=== PATIENT | female | born 1950 | race Caucasian/White ===

== ENCOUNTER 2022-05-23 15:06 | Inpatient (IN) | payer BC ==
[~2022-05-23] VITALS: Ht 172.7 cm; Wt 76.2 kg
[2022-05-23 15:25] VITALS: BP_SYST 141
--- NOTE | 2022-05-23 15:30 | NUR ---
RECEIVED PT BIB FAMILY. PT HAS LEFT SIDED FACIAL DROOP WITH DROOLING NOTED. PT LETHARGIC, RIGHT PUPIL 2MM, LEFT PUPIL 4MM. PT FAMILY STATES PT HAS LEFT EYE PROTHEISIS. PT IS AAOX4, ABLE TO ANSWER QUESTIONS APPROPRIETLY WITH WET VOICE AND DISTORTION FOR FACIAL DROOPING, PT HAS LEFT SIDE WEAKNESS NOTICED TO LEFT LEG. RESP E/U. ON R/A. NO COUGH OR SOB. ABDOMEN SOFT, NONTENDER, NONDISTENDED. BOWEL SOUNDS ACTIVE. DISTAL PULSES NORMAL, NO EDEMA. IV CATH 20G PLACED TO LAC FIRST ATTEMPT, OPSITE APPLIED. PT DENIES PAIN.
--- NOTE | 2022-05-23 15:35 | NUR ---
DR. CALL AT BEDSIDE, CODE STROKE CALLED, BS 199. LABS OBTAINED. PT TAKEN FOR CT SCAN.
--- NOTE | 2022-05-23 15:52 | NUR ---
TELENEURO REQUESTED PER DR. CALL.
[2022-05-23 16:07] LABS: BASOPHILS # (AUTO) 0.1 K/uL (0.0-0.2); BASOPHILS % (AUTO) 0.5 % (0.0-2.0); EOSINOPHILS # (AUTO) 0.1 K/uL (0.0-0.4); EOSINOPHILS % (AUTO) 0.8 % (0.0-4.0); HEMATOCRIT 37.6 % (36-48); LYMPHOCYTES # (AUTO) 0.9 K/uL (1.0-5.5); LYMPHOCYTES % (AUTO) 5.7 % (20.5-51.5); MEAN CORPUSCULAR HEMOGLOBIN 32 pg (27-31); MEAN CORPUSCULAR HGB CONC 35 % (32-36); MEAN CORPUSCULAR VOLUME 92 fL (79.0-98.0); MONOCYTES # (AUTO) 1.1 K/uL (0.0-1.0); MONOCYTES % (AUTO) 6.8 % (1.7-9.3); NEUTROPHILS # (AUTO) 14.1 K/uL (1.8-7.7); NEUTROPHILS % (AUTO) 86.2 % (40.0-70.0); PLATELET COUNT (AUTO) 223 K/uL (130-430); RED BLOOD CELL COUNT(AUTO) 4.09 MIL/uL (4.2-6.2); RED CELL DISTRIBUTION WIDTH 13.4 % (9.0-15.0); WHITE BLOOD COUNT (AUTO) 16.4 K/uL (4.8-10.8)
--- NOTE | 2022-05-23 16:09 | NUR ---
COVID-19 SWAB OBTAINED, LABELED, AND SENT TO THE LAB.
--- NOTE | 2022-05-23 16:20 | NUR ---
TELE NEURO CONSULT INITIATED BY DR. JOHNSON AT THIS TIME.
[2022-05-23 16:36] LABS: ANION GAP 2 (5-15); CALCIUM 9.5 mg/dL (8.4-11.0); CHLORIDE 102 mmol/L (98-107); CREATININE 1.13 mg/dL (0.55-1.30); GLUCOSE 191 mg/dL (70-99); POTASSIUM 3.8 mmol/L (3.5-5.1); UREA NITROGEN, BLOOD 17 mg/dL (8-21)
[2022-05-23] MEDS ORDERED: ASPI-524 PO (16:41)
[2022-05-23] MEDS ORDERED: LITH300C2 PO (16:41)
[2022-05-23] MEDS ORDERED: NOR10 PO (16:41)
[2022-05-23] MEDS ORDERED: INSU100I26 SQ (16:41)
[2022-05-23] MEDS ORDERED: LIP10 PO (16:41)
[2022-05-23] MEDS ORDERED: RISP3TAB63 PO (16:41)
[2022-05-23] MEDS ORDERED: LEVO50CA4 PO (16:41)
[2022-05-23] MEDS ORDERED: GLIP10TA21 PO (16:41)
--- NOTE | 2022-05-23 16:41 | NUR ---
Medication reconciliation completed with information provided by PATIENT'S DAUGHTER. Any prior medication reconciliation on file was reviewed and corrected.
[2022-05-23 16:48] LABS: ALANINE AMINOTRANSFERASE 18 U/L (12-78); ALBUMIN 3.2 g/dL (3.4-4.8); ASPARTATE AMINOTRANSFERASE 23 U/L (10-37); TOTAL BILIRUBIN 0.9 mg/dL (0.0-1.0)
[2022-05-23 16:49] LABS: GFR AFRICAN AMERICAN 61 mL/min (>90)
--- NOTE | 2022-05-23 16:50 | NUR ---
DR. CALL AT BEDSIDE TO ASSESS PT.
[2022-05-23] MEDS ORDERED: iohexoL 350 mgI/mL, 100 ML INFUS..BTL IV ONE (16:51)
[2022-05-23 16:52] LABS: PROTHROMBIN TIME 10.6 SECS (9.5-12.5)
[2022-05-23 17:22] LABS: BILIRUBIN,URINE NEGATIVE (NEGATIVE); BLOOD, URINE 2+ (NEGATIVE); CLARITY/URINE SL CLOUDY (CLEAR); COLOR,URINE YELLOW (YELLOW); GLUCOSE,URINE NEGATIVE (NEGATIVE); KETONES,URINE NEGATIVE (NEGATIVE); LEUKOCYTE ESTERASE ,URINE 1+ (NEGATIVE); NITRITE, URINE POSITIVE (NEGATIVE); PH,URINE 6.5 (5.0-8.0); PROTEIN URINE 1+ (NEGATIVE); UROBILINOGEN,URINE 0.2 (0.2-1.0)
--- NOTE | 2022-05-23 17:24 | NUR ---
BELONGING COMPLETED BY JAQUI DANIEL
--- NOTE | 2022-05-23 17:26 | NUR ---
URINE OBTAINED BY STRAIGHT CATH, PT INCONTINENT. DIP STICK COMPLETED. DR. CALL MADE AWARE PT'S LEUKOCYTES AND NITRITES ARE POSITIVE, NNOS. URINE SAMPLE TAKEN TO LAB.
[2022-05-23 17:36] LABS: BACTERIA,URINE MANY /HPF (None Seen)
[2022-05-23 17:37] LABS: MUCUS,URINE None Seen /LPF (None Seen)
[2022-05-23] MEDS ORDERED: cefTRIAXone 1 GM in D5W 50 ML IV ONE (17:45)
--- NOTE | 2022-05-23 17:45 | NUR ---
SCHEDULED MEDS GIVEN AND TOLERATED WELL.
[2022-05-23] MEDS ORDERED: cefTRIAXone 1 GM VIAL ONE (18:19)
[2022-05-23] MEDS ORDERED: ACETAMINOPHEN 650 MG SUPP.RECT RC ONE (19:00)
[2022-05-23] MEDS: D5/0.45 NS 1,000 ML IV SCH (19:01)
--- NOTE | 2022-05-23 19:13 | NUR ---
ENDORSED ALL CARE TO STAN DORSEY. ALL QUESTIONS AND CONCERNS ADDRESSED.
--- NOTE | 2022-05-23 19:14 | NUR ---
PT'S TEMP 100.5F, TYLENOL 650MG RECTAL GIVEN. COOLING MEASURE IN PLACE.
--- NOTE | 2022-05-23 19:15 | NUR ---
PT IN BED RESTING. VSS. PT UNABLE TO COMMUNICATE EFFCTIVELY. PT A&O X1. UNABLE TO MANDREL CLEANER BILATERALLY. PT WITH NOTED LEFT FACIAL DROOP. DAUGHTER AT BEDSIDE.
--- NOTE | 2022-05-23 19:15 | NUR ---
Admit bed requested Patient will be admitted to care of . Admitted to telemetry unit. Diagnosis rule out cva Inpatient (Yes or No) y Observation (Yes or No) n Orientation concerns or request close to nursing station (Yes or No) n Covid Status neg On vent or bipap n Isolation requirements n Needs a sitter n From Home (Yes or if No enter name of facility) y Requires Dialysis (Yes or No) n Med Rec Completed (Yes of No) y
--- NOTE | 2022-05-23 19:41 | NUR ---
[facility] FLOOR CHARGE NURSE NOTIFIED OF BED REQUEST. AWAITING BED ASSIGNMENT
--- NOTE | 2022-05-23 20:08 | NUR ---
PT WILL BE ADMITTING TO [address] , ENTERED ROOM NO. IN THE TRACKER
--- NOTE | 2022-05-23 20:15 | NUR ---
Patient will be admitted to care of Dr. Obando. Admitted to telemetry unit. Will go to room 119B. Belongings list completed. Complete and up to date summary report printed. SBAR report given to Aylin PIERCE at bedside with opportunity for questions.
[2022-05-23 20:57] VITALS: BP_SYST 118
--- NOTE | 2022-05-23 22:30 | NUR ---
NEW IV SITE PREVIOUS IV AT LEFT AC REMOVED, CATHETER FULLY INTACT, NO ACTIVE BLEEDING NOTED. REMOVED DUE TO INFILTRATION. NEW IV INSERTED AT LEFT FOREARM , 22 GAUGE, PATIENT TOLERATED WELL. IVF INFUSING WELL. WILL CONTINUE TO MONITOR.
[2022-05-24] VITALS: BP_SYST 122
--- NOTE | 2022-05-24 02:30 | NUR ---
LEFT VOICEMAIL FOR SWALLOW EVAL
--- NOTE | 2022-05-24 03:07 | NUR ---
ROUNDS PATIENT IN BED, RESTING. NO SIGNS OF DISCOMFORT. ALL NEEDS MET. WILL CONTINUE TO MONITOR.
--- NOTE | 2022-05-24 06:28 | NUR ---
CLOSING NOTE PATIENT IN BED, RESTING, NO S/S OF ACUTE DISTRESS NOTED. BREATHING EVEN AND UNLABORED. HOB RAISED. IVF INFUSING WELL, IV SITE PATENT, NO SIGNS OF INFILTRATION OR INFECTION NOTED. SKIN WARM AND DRY TO TOUCH. ALL NEEDS MET THROUGHOUT SHIFT. FALL, SAFETY PRECAUTIONS MAINTAINED THROUGHOUT SHIFT. WILL CONTINUE TO MONITOR UNTIL PATIENT CARE IS ENDORSED TO ONCOMING DAYSHIFT NURSE.
--- NOTE | 2022-05-24 07:05 | NUR ---
OPENING RECEIVE SBAR FROM NIGHT NURSE, PATIENT IS LAYING IN BED WITH EYES CLOSE, RESPIRATIONS ARE EVEN AN NON LABORED, BED IN LOW LOCKED POSITION, BED ALARM ON, CALL LIGHT WITHIN REACH.
[2022-05-24 08:00] VITALS: BP_SYST 149
--- NOTE | 2022-05-24 08:00 | NUR ---
PT VERY DROWSY, AWAKENS TO VOICE AND TOUCH BUT GOES BACK TO SLEEP.
[2022-05-24] MEDS: cefTRIAXone 1 GM in D5W 50 ML IV SCH (08:24)
--- NOTE | 2022-05-24 08:45 | NUR ---
Annel OWENS. SEE PT WALKING WITH PT IN THE HALLWAY WITH F[facility].
--- NOTE | 2022-05-24 10:06 | NUR ---
MRI PATIENT TAKEN FOR MRI VIA [facility]
[2022-05-24 12:31] VITALS: BP_SYST 157
--- NOTE | 2022-05-24 14:16 | NUR ---
Bear Lao followed up with speech therapist. spoke to Joaquin
[2022-05-24] MEDS: D5/0.45 NS 1,000 ML IV SCH ×2 (14:45→21:10)
--- NOTE | 2022-05-24 14:54 | NUR ---
PAGED DR. BROWN, PT WITH ELEVATED TEMP
[2022-05-24 16:20] VITALS: BP_SYST 142
--- NOTE | 2022-05-24 16:20 | NUR ---
speech therapist at bedside
--- NOTE | 2022-05-24 16:37 | NUR ---
ST EVALUATION COMPLETED. ST TX NOT INDICATED AT THIS TIME. RECOMMEND PO DIET OF PUREE/THIN LIQUID WITH 1:1 ASSISTANCE AND FULL ASPIRATION PRECAUTIONS.
--- NOTE | 2022-05-24 16:50 | NUR ---
MD Dr. Obando at bedside talking to family
--- NOTE | 2022-05-24 16:55 | NUR ---
MD Dr. Obando on the floor, new orders receive
[2022-05-24] MEDS: ACETAMINOPHEN 325 MG TABLET PO PRN (19:11)
--- NOTE | 2022-05-24 19:15 | NUR ---
I received pt in bed with family by the bedside .pt able to follow simple commands.NIH assessment done .pt has a Temp 99.9 cooling ice provided .AccuStick @2100 is 379 . Lantus 45 units SQ given to right lower abdomen as ordered
--- NOTE | 2022-05-24 19:22 | NUR ---
closing provided sbar to night nurse, patient in bed, iv running as ordered, respiration even and non labored, temp was 100.5, medication given as ordered and cooling measures provided, bed are low and in gilbert position , bed alarm on, family at bedside, endorsed care to night nurse
[2022-05-24 20:00] VITALS: BP_SYST 144
[2022-05-24] MEDS: glipiZIDE XL 5 MG TAB ( GLUCOTROL XL) PO SCH (20:57)
[2022-05-24] MEDS: INSULIN GLARGINE 100 UNITS/ML, 10 ML VIAL SUBCUT SCH (21:12)
[2022-05-24] MEDS: risperiDONE 1 MG TABLET (RisperDAL) PO SCH (21:14)
[2022-05-24] MEDS: ATORVASTATIN 10 MG TABLET PO SCH (21:15)
[2022-05-24] MEDS: LITHIUM CARBONATE 300 MG TABLET.SA PO SCH (21:15)
--- NOTE | 2022-05-24 22:00 | NUR ---
provided a bed rivera and a CHG bath with complete linen Change
[2022-05-24 23:21] VITALS: BP_SYST 153
[2022-05-25] VITALS: BP_SYST 153
--- NOTE | 2022-05-25 01:00 | NUR ---
pt had a BM in bed .cleaned and linen changed
[2022-05-25] MEDS: LEVOTHYROXINE SODIUM 0.05 MG TABLET PO SCH (06:39)
[2022-05-25 07:54] VITALS: BP_SYST 144
[2022-05-25] MEDS: ASPIRIN 81 MG TAB.CHEW PO SCH (08:26)
[2022-05-25] MEDS: glipiZIDE XL 5 MG TAB ( GLUCOTROL XL) PO SCH ×2 (08:26→20:30)
[2022-05-25] MEDS: amLODIPine BESYLATE 10 MG TABLET PO SCH (08:27)
[2022-05-25] MEDS: LITHIUM CARBONATE 300 MG TABLET.SA PO SCH ×2 (08:28→20:30)
[2022-05-25] MEDS: cefTRIAXone 1 GM in D5W 50 ML IV SCH (08:43)
--- NOTE | 2022-05-25 08:44 | NUR ---
HHN FOR P.T. AT HOME FAMILY REQUESTING FOR HHN FOR P.T. AT HOME.
--- NOTE | 2022-05-25 09:01 | NUR ---
FAMILY AT BEDSIDE. THIS RN ASSISTED PT WITH BREAKFAST AND MEDICATIONS. MED WERE CRUSHED AND GIVEN WITH PUREED PEACH. PT TOLERATED WELL. PT'S GAVE PT ENSURE, PT STARTED COUGHING. TOLD THEM TO SLOW DOWN WHEN THEY FEED THE PT OR GIVE DRINK TO PT.
[2022-05-25 09:03] LABS: BASOPHILS # (AUTO) 0.1 K/uL (0.0-0.2); BASOPHILS % (AUTO) 0.6 % (0.0-2.0); EOSINOPHILS # (AUTO) 0.1 K/uL (0.0-0.4); HEMATOCRIT 38.1 % (36-48); HEMOGLOBIN 13.1 g/dL (12.0-16.0); LYMPHOCYTES # (AUTO) 0.4 K/uL (1.0-5.5); LYMPHOCYTES % (AUTO) 4.4 % (20.5-51.5); MEAN CORPUSCULAR HEMOGLOBIN 31 pg (27-31); MEAN CORPUSCULAR HGB CONC 34 % (32-36); MEAN CORPUSCULAR VOLUME 91 fL (79.0-98.0); MONOCYTES # (AUTO) 0.8 K/uL (0.0-1.0); MONOCYTES % (AUTO) 9.1 % (1.7-9.3); NEUTROPHILS # (AUTO) 7.1 K/uL (1.8-7.7); NEUTROPHILS % (AUTO) 84.9 % (40.0-70.0); PLATELET COUNT (AUTO) 216 K/uL (130-430); RED BLOOD CELL COUNT(AUTO) 4.17 MIL/uL (4.2-6.2); RED CELL DISTRIBUTION WIDTH 13.4 % (9.0-15.0); WHITE BLOOD COUNT (AUTO) 8.4 K/uL (4.8-10.8)
[2022-05-25] MEDS: D5/0.45 NS 1,000 ML IV SCH ×2 (10:30→23:01)
[2022-05-25 10:44] LABS: ALBUMIN 2.8 g/dL (3.4-4.8); CALCIUM 9.1 mg/dL (8.4-11.0); CREATININE 1.08 mg/dL (0.55-1.30); POTASSIUM 3.9 mmol/L (3.5-5.1); TOTAL BILIRUBIN 0.4 mg/dL (0.0-1.0)
[2022-05-25 11:55] VITALS: BP_SYST 149
--- NOTE | 2022-05-25 14:10 | NUR ---
[facility]/HCP CM MS Thompson OUTMARCUS WAS CALLED, RE: TO ARRANGE DELIVERY OF FWW FOR HOME USE.
[2022-05-25 15:05] VITALS: BP_SYST 113; BP_SYST 147
[2022-05-25] MEDS: ACETAMINOPHEN 325 MG TABLET PO PRN (15:20)
--- NOTE | 2022-05-25 15:43 | NUR ---
PT HAD TEMP OF 100.6, GIVEN TYLENOL , DR BROWN AWARE, NEW ORDERS GIVEN.
--- NOTE | 2022-05-25 18:40 | NUR ---
DC HOME ORDER ON HOLD DT PT HAD TEMP OF 100.6 , PT WAS GIVEN TYLENOL AND TEMP IS BETTER NOW. PT HAS BEEN HAVING A LOT OF URINE INCONTINENCE , CHANGED SEVERAL TIME DURING THE SHIFT. PT'S FAMILY WERE AT BEDSIDE IS AWARE OF WHAT IS GOING ON THIS RN AND DR BROWN UPDATED THEM.
[2022-05-25] MEDS: INSULIN GLARGINE 100 UNITS/ML, 10 ML VIAL SUBCUT SCH (20:28)
[2022-05-25] MEDS: ATORVASTATIN 10 MG TABLET PO SCH (20:30)
[2022-05-25] MEDS: risperiDONE 1 MG TABLET (RisperDAL) PO SCH (20:30)
[2022-05-25] MEDS: INSULIN LISPRO SLIDING SCALE 100 UNITS/ML, 3 ML VIAL (humaLOG) SUBCUT PRN (21:03)
[2022-05-25 22:04] VITALS: BP_SYST 151
[2022-05-26] VITALS: BP_SYST 135
[2022-05-26] MEDS: LEVOTHYROXINE SODIUM 0.05 MG TABLET PO SCH (06:09)
--- NOTE | 2022-05-26 06:12 | NUR ---
rn notes patient remains on room air, no sob noted. last BS was 102. Possible DC today per Dr Obando, once he sees her and add a medication to better control pts diabetes.
--- NOTE | 2022-05-26 06:49 | NUR ---
INFORMED REGISTRY NURSE NINOSKA THAT THE PATIENT IS OFF THE TELE MONITOR
[2022-05-26 08:03] VITALS: BP_SYST 159
--- NOTE | 2022-05-26 08:30 | NUR ---
PT VERY SOAKED WITH URINE, COMPLETE BED CHANGED DONE.
[2022-05-26] MEDS: ASPIRIN 81 MG TAB.CHEW PO SCH (08:40)
[2022-05-26] MEDS: glipiZIDE XL 5 MG TAB ( GLUCOTROL XL) PO SCH ×2 (08:40→20:56)
[2022-05-26] MEDS: amLODIPine BESYLATE 10 MG TABLET PO SCH (08:43)
[2022-05-26] MEDS: LITHIUM CARBONATE 300 MG TABLET.SA PO SCH ×2 (08:43→20:56)
[2022-05-26] MEDS: cefTRIAXone 1 GM in D5W 50 ML IV SCH (08:50)
[2022-05-26] MEDS: INSULIN LISPRO SLIDING SCALE 100 UNITS/ML, 3 ML VIAL (humaLOG) SUBCUT PRN (11:52)
[2022-05-26 13:00] VITALS: BP_SYST 145
[2022-05-26] MEDS: D5/0.45 NS 1,000 ML IV SCH (13:10)
[2022-05-26 18:33] VITALS: BP_SYST 123
[2022-05-26] MEDS: INSULIN GLARGINE 100 UNITS/ML, 10 ML VIAL SUBCUT SCH (20:56)
[2022-05-26] MEDS: ATORVASTATIN 10 MG TABLET PO SCH (20:56)
[2022-05-26] MEDS: risperiDONE 1 MG TABLET (RisperDAL) PO SCH (20:56)
[2022-05-26 21:37] VITALS: BP_SYST 143
[2022-05-27 01:10] VITALS: BP_SYST 163
[2022-05-27] MEDS: D5/0.45 NS 1,000 ML IV SCH ×2 (02:38→15:33)
--- NOTE | 2022-05-27 06:26 | NUR ---
rn notes patient remainsonroom air, no sob noted. VSS. Blood sugar is normal all shift. Some moments of confusion. Still incontinent x 2.
[2022-05-27] MEDS: LEVOTHYROXINE SODIUM 0.05 MG TABLET PO SCH (06:30)
--- NOTE | 2022-05-27 07:21 | NUR ---
receive the patient form the security shift manager rn in a stable condition with admitting diagnosis of rule out stroke . aox2 bedrest . no sign and symptoms of pain . no complain of respiratory distress at this time . will continue to monitor
[2022-05-27 07:31] LABS: C-REACTIVE PROTEIN QUANT 3.4 mg/dL (0-0.5); CALCIUM 9.4 mg/dL (8.4-11.0); CREATININE 0.99 mg/dL (0.55-1.30); PHOSPHORUS 5.1 mg/dL (2.7-4.5); POTASSIUM 3.6 mmol/L (3.5-5.1)
[2022-05-27 08:44] LABS: BASOPHILS # (AUTO) 0.1 K/uL (0.0-0.2); BASOPHILS % (AUTO) 0.8 % (0.0-2.0); EOSINOPHILS # (AUTO) 0.4 K/uL (0.0-0.4); EOSINOPHILS % (AUTO) 4.5 % (0.0-4.0); HEMATOCRIT 38.6 % (36-48); HEMOGLOBIN 13.2 g/dL (12.0-16.0); LYMPHOCYTES % (AUTO) 13.3 % (20.5-51.5); MEAN CORPUSCULAR HEMOGLOBIN 31 pg (27-31); MEAN CORPUSCULAR HGB CONC 34 % (32-36); MEAN CORPUSCULAR VOLUME 91 fL (79.0-98.0); MONOCYTES # (AUTO) 0.6 K/uL (0.0-1.0); MONOCYTES % (AUTO) 7.8 % (1.7-9.3); NEUTROPHILS # (AUTO) 5.7 K/uL (1.8-7.7); NEUTROPHILS % (AUTO) 73.6 % (40.0-70.0); PLATELET COUNT (AUTO) 240 K/uL (130-430); RED BLOOD CELL COUNT(AUTO) 4.22 MIL/uL (4.2-6.2); RED CELL DISTRIBUTION WIDTH 13.7 % (9.0-15.0); WHITE BLOOD COUNT (AUTO) 7.8 K/uL (4.8-10.8)
[2022-05-27 09:26] LABS: ERYTHROCYTE SEDIMENTATION RATE 31 MM/HR (0-20)
[2022-05-27] MEDS: cefTRIAXone 1 GM in D5W 50 ML IV SCH (10:44)
[2022-05-27] MEDS: ASPIRIN 81 MG TAB.CHEW PO SCH (10:45)
[2022-05-27] MEDS: amLODIPine BESYLATE 10 MG TABLET PO SCH (10:46)
[2022-05-27] MEDS: LITHIUM CARBONATE 300 MG TABLET.SA PO SCH ×2 (10:46→21:14)
[2022-05-27] MEDS: glipiZIDE XL 5 MG TAB ( GLUCOTROL XL) PO SCH ×2 (10:48→21:14)
[2022-05-27] MEDS: INSULIN LISPRO SLIDING SCALE 100 UNITS/ML, 3 ML VIAL (humaLOG) SUBCUT PRN ×2 (11:36→18:17)
[2022-05-27 11:49] VITALS: BP_SYST 141
[2022-05-27] MEDS ORDERED: NITR-85 PO (13:05)
[2022-05-27 16:46] VITALS: BP_SYST 136
--- NOTE | 2022-05-27 18:50 | NUR ---
will endorse to shift superintendent caustic cresylate rn for continuity of care
--- NOTE | 2022-05-27 19:23 | NUR ---
OPENING NOTES: Patient received from AM shift. Patient is currently sleeping with family at bedside and no s/s of distress noted at this time. Chest rise is even and unlabored on RA. Patient is noted to be stable at this time, safety measures are in place and patient has call light within reach. Will resume care and continue to monitor throughout the shift.
[2022-05-27 20:00] VITALS: BP_SYST 157
[2022-05-27] MEDS: ATORVASTATIN 10 MG TABLET PO SCH (21:14)
[2022-05-27] MEDS: risperiDONE 1 MG TABLET (RisperDAL) PO SCH (21:15)
[2022-05-27] MEDS: INSULIN GLARGINE 100 UNITS/ML, 10 ML VIAL SUBCUT SCH (21:23)
[2022-05-28 00:37] VITALS: BP_SYST 145
--- NOTE | 2022-05-28 00:44 | NUR ---
PATIENT RESTING: Patient resting quietly. No acute distress noted. Vital signs within normal range.
[2022-05-28] MEDS: LEVOTHYROXINE SODIUM 0.05 MG TABLET PO SCH (06:23)
[2022-05-28] MEDS: D5/0.45 NS 1,000 ML IV SCH (06:27)
--- NOTE | 2022-05-28 06:56 | NUR ---
CLOSING NOTES: Patient is in bed resting no s/s of distress is noted at this time. Patient voice is noted to be clear but patient is still confused and orientated x2. Patient BS was assessed at 63 at 0625 so 2 boxes of apple juice were given to patient with morning medication. Patient tolerated it well with no difficulty noted while swallowing. Safety measures are in place, all current shift needs have been met and patient is stable at this time. Will differ further care to AM shift for continuity of care.
[2022-05-28 07:10] LABS: BASOPHILS # (AUTO) 0.1 K/uL (0.0-0.2); BASOPHILS % (AUTO) 1.1 % (0.0-2.0); EOSINOPHILS # (AUTO) 0.3 K/uL (0.0-0.4); EOSINOPHILS % (AUTO) 3.9 % (0.0-4.0); HEMOGLOBIN 13.2 g/dL (12.0-16.0); LYMPHOCYTES # (AUTO) 1.1 K/uL (1.0-5.5); LYMPHOCYTES % (AUTO) 12.7 % (20.5-51.5); MEAN CORPUSCULAR HEMOGLOBIN 32 pg (27-31); MEAN CORPUSCULAR HGB CONC 35 % (32-36); MEAN CORPUSCULAR VOLUME 91 fL (79.0-98.0); MONOCYTES # (AUTO) 0.7 K/uL (0.0-1.0); MONOCYTES % (AUTO) 7.3 % (1.7-9.3); NEUTROPHILS # (AUTO) 6.8 K/uL (1.8-7.7); PLATELET COUNT (AUTO) 235 K/uL (130-430); RED BLOOD CELL COUNT(AUTO) 4.17 MIL/uL (4.2-6.2); RED CELL DISTRIBUTION WIDTH 13.3 % (9.0-15.0)
--- NOTE | 2022-05-28 07:22 | NUR ---
receive the patient from the data analyst report writer rn in a stable condition with admitting diagnosis of rule out stroke . aox2 with episode of confusion . no sign and symptoms of respiratory distress .no complsin of pain at this time . will continue to monitor
[2022-05-28 08:00] VITALS: BP_SYST 128
[2022-05-28 08:31] LABS: ALBUMIN 2.8 g/dL (3.4-4.8); C-REACTIVE PROTEIN QUANT 1.3 mg/dL (0-0.5); CALCIUM 9.5 mg/dL (8.4-11.0); POTASSIUM 3.6 mmol/L (3.5-5.1); TOTAL BILIRUBIN 0.2 mg/dL (0.0-1.0)
[2022-05-28] MEDS: ASPIRIN 81 MG TAB.CHEW PO SCH (09:19)
[2022-05-28] MEDS: amLODIPine BESYLATE 10 MG TABLET PO SCH (09:20)
[2022-05-28] MEDS: glipiZIDE XL 5 MG TAB ( GLUCOTROL XL) PO SCH (09:21)
[2022-05-28] MEDS: LITHIUM CARBONATE 300 MG TABLET.SA PO SCH (09:21)
[2022-05-28] MEDS: cefTRIAXone 1 GM in D5W 50 ML IV SCH (09:21)
[2022-05-28 10:32] LABS: ERYTHROCYTE SEDIMENTATION RATE 19 MM/HR (0-20)
--- NOTE | 2022-05-28 10:43 | NUR ---
physiacl therapy evaluation was done . ambulate with assist thru front wheel walker
[2022-05-28] MEDS: INSULIN LISPRO SLIDING SCALE 100 UNITS/ML, 3 ML VIAL (humaLOG) SUBCUT PRN (11:58)
[2022-05-28 12:00] VITALS: BP_SYST 139
[2022-05-28] MEDS ORDERED: ASPI-1393 PO (12:38)
[2022-05-28] MEDS ORDERED: CEPH250C PO (12:38)
--- NOTE | 2022-05-28 12:41 | NUR ---
receive a discharge from md orellana for the patient to home with [facility] for physical and occupational therapy . made some discharge teaching for the patient . follow up with neurology md [facility] aidaed max .
--- NOTE | 2022-05-28 13:30 | NUR ---
talk with the daughter regarding the discharge home with home health . follow up regarding the delivery with fron wheel walker at home . remove the iv and id band . was brought to the lobby with a wheelchair in a stale condition with the and granddaughter to a waiting private car
[2022-05-28 15:18] VITALS: BP_SYST 128
--- NOTE | 2022-05-29 07:42 | NUR ---
PHYSICAL THERAPY CO-SIGN The Physical Therapy Progress Notes documented by Crimping Machine Operator have been reviewed. Reviewed/Co-Signed by: Joshua Saldaña Documentation Done by: RAJINDER MCDONNELL PTA Addendum: 05/29/22 at 0742 by Joshua Saldaña PT Amended: Links added.
== END 2022-05-28 05:00 | disposition home health service (06) | DRG 872 ==
LOC: SED 15:06 → STU 18:28 → SMU 05-26 21:30
PROVIDERS: ADMIT Internal Medicine; ATTEND Internal Medicine
DX: A41.9 Sepsis, unspecified organism (principal); N39.0 Urinary tract infection, site not specified; E87.0 Hyperosmolality and hypernatremia; G45.0 Vertebro-basilar artery syndrome; E11.65 Type 2 diabetes mellitus with hyperglycemia; Z20.822 Contact with and (suspected) exposure to COVID-19; I12.9 Hypertensive chronic kidney disease with stage 1 through stage 4 chronic kidney disease, or unspecified chronic kidney disease; E11.22 Type 2 diabetes mellitus with diabetic chronic kidney disease; F31.9 Bipolar disorder, unspecified; N18.31 Chronic kidney disease, stage 3a; E83.39 Other disorders of phosphorus metabolism; I25.10 Atherosclerotic heart disease of native coronary artery without angina pectoris; E83.41 Hypermagnesemia; E88.09 Other disorders of plasma-protein metabolism, not elsewhere classified; B96.20 Unspecified Escherichia coli [E. coli] as the cause of diseases classified elsewhere; E03.9 Hypothyroidism, unspecified; Z79.4 Long term (current) use of insulin
CPT/HCPCS: 36415; 70450-TC; 70496; 70498; 70551; 71045; 76376; 80048; 80053; 80178; 81000; 82962; 83605; 83735; 84100; 84484; 85025; 85610-TC; 85651-TC; 85730-TC; 86140; 87040; 87086; 92610-GN; 93005; 93306; 93880; 96365; 97110-GP; 97116-GP; 97163-GP; 97530-GP; 99285; G0378; J0696; J1815; J7030; J7042; J7060; Q9967